=== PATIENT | female | born 1935 | race Caucasian/White ===

== ENCOUNTER → 2017-06-28 | Outpatient (CLI) | payer OTHER, BC ==
[~2017-06-28] MED LIST: ALEVE220 M1 PO; ALLEGRA60 MG OR; ASPIRIN EC81 M1 PO; CALCIUM OYSTER500 MG PO; FLONASE NS; HYDROCODON-ACE1 EAC8; LIPITOR20 MG OR; MAGNESIUM100 MG PO; MULTIVITAMINS PO; NEOMYCIN/BACIT3.5 G1; OMEGA-3 FISH1000 MG PO; PAXIL40 MG OR; VITCB500GO PO; ZOFRAN4 MG
== END ==
LOC: RAD 14:39
DX: M19.012 Primary osteoarthritis, left shoulder (principal); M25.412 Effusion, left shoulder